=== PATIENT | female | born 1965 | race Caucasian/White ===

== ENCOUNTER 2017-06-16 20:09 | Inpatient (IN) | payer MEDICARE, OTHER ==
[2017-06-16] MEDS ORDERED: Maalox 30 mL Cup PO PRN (21:13)
[2017-06-16] MEDS ORDERED: Magnesium Hydroxide (MOM) 30 mL UDC PO PRN (21:13)
[2017-06-16 21:14] VITALS: BP 107/61
[2017-06-17] MEDS: INSULIN ASPART SLIDING SCALE 100 UNITS/ML UNIT SUBQ SCH ×4 (06:37→20:57)
--- NOTE | 2017-06-17 12:58 | History & Physical ---
ADMIT DATE: 06/16/2017 PATIENT IDENTIFICATION: A 51-year-old female. REQUESTING PHYSICIAN: Dr. Tito Ochoa. REASON: Medical management. HISTORY OF PRESENT ILLNESS: This is a 51-year-old Citizen Of [place] female admitted by Dr. Ochoa from [facility] after the patient was noted to have hallucinations when the patient was saying that the patient believes people are trying to kill her and she was delusional and not taking her medication. PAST MEDICAL HISTORY: Remarkable for: 1. Diabetes. 2. Hypertension. 3. Obesity. 4. DJD. 5. Urinary incontinence. MEDICATIONS AT HOME: Taking aspirin, benazepril, Cogentin, hydrochlorothiazide, metformin, Nicotine patch, Dallas, oxybutynin. ALLERGIES: The patient is not allergic to any medications. SOCIAL HISTORY: She has a history of smoking cigarette. No alcohol or drug use. She resides with her family. FAMILY MEDICAL HISTORY: Remarkable for diabetes and hypertension. REVIEW OF SYSTEMS: The patient currently denies any headache, blurred vision, double vision, dysphagia, odynophagia, runny nose, stuffy nose, fever, chills, cough, chest pain, shortness of breath, palpitations, dizziness, nausea, vomiting, diarrhea, dysuria, hematuria, hematochezia, melena. No history of any seizure or syncopal episode. PHYSICAL EXAMINATION: GENERAL: The patient is alert, awake, lying in the bed without any acute distress. VITAL SIGNS: Temperature 98.7, pulse is 74, respiratory rate 18, blood pressure 130/70. SKIN: Warm to touch. Adequate skin turgor. No petechia, no purpura. HEENT: Normocephalic, atraumatic. Extraocular muscles are intact. Tongue was pink and coated. Poor dentition noted. No oral lesion, no exudate. No sinus tenderness. External auditory canals and tympanic membranes are well visualized. NECK: Supple, no JVD, no hepatojugular reflux. No lymphadenopathy, thyromegaly or carotid bruit. HEART: Both heart sounds are regular. No S3, no S4, no murmur. CHEST: Lung equal in expansion, no wheezing, no crackles. ABDOMEN: Soft. No guarding, no rigidity. Liver and spleen not palpable. No palpable mass. EXTREMITIES: No edema, no cyanosis or clubbing. Peripheral pulses +2. No calf tenderness noted. EXTERNAL GENITALIA AND RECTAL: Not done as per patient request. NEUROLOGIC: Alert, awake, oriented to time, place, person, 2-12 cranial nerves are intact. Power in upper and lower extremities, 5+. Sensation to touch intact. Babinski both toes are going down. No cerebral sign. AVAILABLE DIAGNOSTIC DATA: CBCs are within normal limit. Chest x-ray, no infiltrate, no congestion. Chemistry panels are unremarkable. CLINICAL IMPRESSION: 1. Diabetes mellitus. 2. Hypertension. 3. Obesity. 4. Nicotine dependency. 5. Psychotic disorder. 6. Urinary incontinence. 7. Degenerative joint disease. 8. Health maintenance. PLAN: 1. The patient is admitted at this time to psychiatric unit. Psychiatric care evaluation and management deferred to psychiatrist. 2. Resume the patient is taking medications, which include aspirin, Cogentin, benazepril, hydrochlorothiazide, metformin along with Dallas and Oxybutynin. The patient will have glucose monitoring and use sliding scale insulin. The patient is medically stable to participate in the activities of Geropsych Unit at [facility]. The patient will be seen by us during her stay and as scheduled as well. Care plan has been reviewed and discussed with staff. JOB# [id number]
--- NOTE | 2017-06-18 02:42 | Psychosocial Evaluation ---
DATE OF SERVICE: 06/17/2017 JUSTIFICATION FOR HOSPITALIZATION: On 5150 hold. The patient is psychotic, delusional, not eating, not sleeping, not taking her medications. CHIEF COMPLAINT: Psychotic decompensation. HISTORY OF PRESENT ILLNESS: A 51-year-old female, unclear psych diagnosis brought in by sister, delusional, poor medication compliance, not eating, not sleeping, highly paranoid, delusional, does not know what is going on, believing that people are trying to kill her. On [id number], the patient is poorly oriented. States that her sister put her here because "she is jealous of me," attesting to voices. PAST PSYCHIATRIC HISTORY: Unknown. FAMILY HISTORY: Unknown. SOCIAL HISTORY: The patient states she was born in [place], it is unclear if she is . She states she has 2 kids. Drug history unclear. MEDICAL HISTORY: Please see full H and P. MENTAL STATUS EXAMINATION: Appearance stated age, overweight female, some eye contact, falling asleep. Mood, "okay." Affect angry. Thought processes were disorganized, no overt SI or HI, but she is delusional, poor insight, poor judgment and poor impulse control. PROVISIONAL DIAGNOSES: Psychosis, unspecified; schizophrenia versus schizoaffective disorder versus delusional disorder; poor medication and treatment compliance; mood, unspecified; anxiety, unspecified. MEDICAL: Please see full H and. ESTIMATED LENGTH OF STAY: 5-7 days. ASSESSMENT: The patient requiring inpatient hospitalization for ADLs, not eating, not sleeping, psychotic decompensation, delusional, brought in by family, decompensating at home, poor self-care. PLAN: We will restart medications. TREATMENT PLAN: Includes group as well as milieu therapy. CONDITIONS FOR DISCHARGE: Improved mood, improved insight and control of his psychotic symptoms. JOB# [id number]
[2017-06-18] MEDS: INSULIN ASPART SLIDING SCALE 100 UNITS/ML UNIT SUBQ SCH ×4 (06:46→21:20)
--- NOTE | 2017-06-18 23:49 | Progress Notes ---
DATE: 06/18/2017 SUBJECTIVE: The patient seen, chart reviewed, discussed with staff. The patient remains symptomatic, bizarre, states that she is a commando, that she plans wars, states her main problems is that she "praised too much." Bizarre, rambling nonsensical, apparently she had been decompensating at home, delusional, not eating, poor attention to ADLs. ASSESSMENT: The patient remains disorganized, still psychotic, symptomatic talking about grandiose and bizarre things. As noted, she has been compliant. No side effects so far. PLAN: We will continue to monitor. The patient remains psychotic, symptomatic. Increased Risperdal today. [facility]# [id number]
[2017-06-19] MEDS: INSULIN ASPART SLIDING SCALE 100 UNITS/ML UNIT SUBQ SCH ×4 (06:48→21:01)
--- NOTE | 2017-06-19 19:23 | Progress Notes ---
DATE: 06/19/2017 SUBJECTIVE: The patient seen, chart reviewed, discussed with staff. The patient remains symptomatic, states she is a commando, states she fights wars and they "___are spiritual_," still bizarre, symptomatic, impulsive, unpredictable, paranoid, delusional, still requiring a lot of prompting for ADLs withdrawn, prompting to eat. ASSESSMENT: The patient remains symptomatic, suspicious, paranoid, delusional, making nonsensical and bizarre statements. PLAN: We will continue to monitor, increase Risperdal today. JOB# [id number] INGRID
[2017-06-20] MEDS: INSULIN ASPART SLIDING SCALE 100 UNITS/ML UNIT SUBQ SCH ×4 (06:46→20:33)
--- NOTE | 2017-06-20 19:46 | Progress Notes ---
DATE: 06/20/2017 SUBJECTIVE: The patient was seen, chart reviewed, discussed with staff. The patient remains delusional, intrusive, demanding, paranoid, still talking nonsensical, bizarre, unable to be cared for at a lower level of care, still noted to be symptomatic and psychotic. Sleeping fairly well, eating well, eating with some prompting. ASSESSMENT: The patient remains symptomatic, still bizarre, still with evidence of delusions. PLAN: Continue to monitor. Continue to titrate medications. We will continue to monitor and monitor for any side effects. JOB# [id number] INGRID
[2017-06-21] MEDS: INSULIN ASPART SLIDING SCALE 100 UNITS/ML UNIT SUBQ SCH ×4 (06:32→20:51)
--- NOTE | 2017-06-21 11:37 | Progress Notes ---
DATE: 06/21/2017 SUBJECTIVE: The patient seen, chart reviewed, discussed with staff. The patient still remains symptomatic, talking about spirit wars, and the spirit world, and spirits coming out of her. Still bizarre, making some nonsensical statements; however, staff noting she does seem to be improving, calmer, more redirectable, more engaged, more oriented. She is still isolative, paranoid, and suspicion, taking her medications, no side effects. ASSESSMENT: The patient remains symptomatic, still delusional, still responding to internal stimuli, but improvement noted. PLAN: We will continue to monitor. We will increase Risperdal today. The patient is not safe for discharge at this time. JOB# [id number]
[2017-06-22] MEDS: INSULIN ASPART SLIDING SCALE 100 UNITS/ML UNIT SUBQ SCH ×4 (06:40→20:11)
--- NOTE | 2017-06-22 09:11 | General Progress Note ---
Subjective - Review of Systems Subjective: Patient seen and examined. No new event reported. Available lab and MAR noted. Objective - Results Recent Labs: Laboratory Last Values POC Glucose 106 MG/DL (70 - 105) H 06/22/17 05:47 - Physical Exam Vitals and I&O: Vital Signs Temp 98.0 F 06/22/17 06:10 Pulse 69 06/22/17 06:10 Resp 18 06/22/17 06:10 BP 155/68 06/22/17 06:10 Pulse Ox 69 06/22/17 06:10 Intake & Output 06/21/17 06/22/17 06/22/17 18:59 06:59 18:59 Intake Total 900 120 Balance 900 120 Weight (lbs) 118.206 kg Intake: Oral 900 120 Other: # Voids 4 2 # Bowel Movements 1 0 Active Medications: Current Medications Acetaminophen (Tylenol) 650 mg PO Q6H PRN PRN Reason: Mild Pain/Headache/T above 101 Stop: 08/15/17 21:12 Last Admin: 06/19/17 12:18 Dose: 650 mg Al Hydrox/Mg Hydrox/Simethicone (Maalox) 30 ml PO Q6H PRN PRN Reason: Dyspepsia Stop: 08/15/17 21:12 Insulin Aspart (Novolog Insulin Sliding Scale) 0 units SUBQ ACHS CATHY PRN Reason: Protocol Stop: 08/16/17 07:29 Last Admin: 06/22/17 06:40 Dose: Not Given Lorazepam (Ativan) 1 mg PO Q6H PRN; Protocol PRN Reason: Anxiety/Agitation Stop: 08/15/17 21:12 Last Admin: 06/21/17 08:36 Dose: 1 mg Magnesium Hydroxide (Milk Of Magnesia) 30 ml PO HS PRN PRN Reason: Constipation Stop: 08/15/17 21:12 Risperidone 1 mg/ Risperidone (0.25 mg) 1.25 mg PO BID CATHY Stop: 08/20/17 09:59 Last Admin: 06/21/17 16:23 Dose: 1.25 mg Zolpidem Tartrate (Ambien) 5 mg PO HS PRN PRN Reason: Insomnia Stop: 08/15/17 21:12 General: Alert, Cooperative, No acute distress HEENT: Atraumatic, PERRLA, EOMI, Mucous membr. moist/pink Neck: Supple Cardiovascular: Regular rate, Normal S1, Normal S2 Lungs: Clear to auscultation Abdomen: Bowel sounds, Soft, Other Extremities: Other (no edema cyanosis) Neurological: Normal speech Psych/Mental Status: Mood NL Assessment/Plan - Assessment Assessment: Diabetes mellitus. Hypertension. Obesity. DJD. Urinary incontinence. Psychotic disorder. - Plan Plan: After initial assessment and follow-up test and follow-up evaluation and reviewing the records and labs, patient to continue on current medication for hypertension diabetes obesity DJD and urinary incontinence treatment for now. Psychiatry evaluation and management deferred to psychiatrist. Patient's is medically stable for psychiatric treatment at this time. Nutritional Asmnt/Malnutr-PDOC - Dietary Evaluation Malnutrition Findings (Please click <Entered> for more info): Nutritional Asmnt/Malnutrition Start: 06/21/17 16: 29 Text: Status: Complete Freq: Document 06/21/17 16:29 GSUN (Rec: 06/21/17 16:53 GSUN [email or web address]) Nutritional Asmnt/Malnutrition Patient General Information Nutritional Screening Diagnosis Diagnosis 5150, psychosis unspecified, schizophrenia vs delusional Pertinent Medical Hx/Surgical Hx DM, HTN, obesity, DJD, urinary incontinence, nicotine dependency, psychotic behavior Subjective Information 51 year old female. Pt is able to ambulate, but travels in wheelchair. Pt was pleasant, questionable historian, focused on going to take a shower during visit, not suitable for nutrition education. Attempted to briefly explain [facility] diet, pt walked away. Pt apepared obese . Pt stated UBW 296lb. Obtained CBW 260.6lb with bedscale properly claibrated. Pt stated excellent appetite, no difficulties, no allergies. Current Diet Order/ Nutrition Support Regular Pertinent Medications Novolog, MOM Pertinent Labs POC glucose 99-139 past 3 days . Nutritional Hx/Data Height 1.78 m Height (Calculated Centimeters) 177.8 Current Weight (lbs) 118.206 kg Weight (Calculated Kilograms) 118.2 Weight (Calculated Grams) 968654.2 [place] Body Weight 150 Weight Status Obese GI Symptoms Skin Integrity/Comment: Neto Garsia. Skin intact. Current %PO Good (75-100%) Estimated Nutritional Goals BEE in Kcals: Adj wt of IBW Calories/Kcals/Kg AdjBW 177.7lb/80.8kg Kcals Calculated 2019-2424kcal (25-30kcal/kg) Protein: Adj wt of IBW Protein Calculated 81g (1g/kg) Fluid: ml 2019-2424ml (1ml/kcal) Nutritional Problem 2. Problem Problem Overweight related to Etiology energy imbalance, excessive PO intake aeb Signs/Symptoms: PO intake >100% of estimated nutritional needs since adm, BMI 37 1. Problem Problem Altered nutrition related laboratory values related to Etiology DM aeb Signs/Symptoms: H&P, elevated POC glucose Intervention/Recommendation Comments 1. Recommend [id number]. 2. Monitor weight. BMI 37. CBW 260.6lb with pt off and bedscale properly calibrated. Expected Outcomes/Goals Expected Outcomes/Goals 1. PO intake to meet at least 75% of estimated nutritional needs.
--- NOTE | 2017-06-22 23:11 | Progress Notes ---
DATE: 06/22/2017 SUBJECTIVE: The patient seen, chart reviewed, discussed with staff. The patient remains bizarre, symptomatic, still talking about wars and spiritual battles and asks me about masturbation, tells me she gets headache. She is, however, on a positive note taking her medications, no side effects noted and she is also agreeable to the long-acting injectable. Sleeping fairly well, eating well. She seems to be more cooperative and less aggressive, still needing prompting. ASSESSMENT: The patient remains symptomatic, bizarre, psychotic still delusional and grandiose. PLAN: Continue to monitor. Continue Risperdal at current dose. Continue titration. I will try to get her on Invega or Risperdal Consta. [facility]# [id number]
[2017-06-23] MEDS: INSULIN ASPART SLIDING SCALE 100 UNITS/ML UNIT SUBQ SCH ×4 (06:43→20:54)
--- NOTE | 2017-06-23 21:00 | Progress Notes ---
DATE: 06/23/2017 SUBJECTIVE: The patient was seen, chart reviewed, and discussed with staff. The patient remains symptomatic, still delusional, still with psychosis, seems to be calmer, more predictable in terms of her behaviors. More interactive on exam, noting that any perceptual disturbance __are improving-___ less fixated on "being responsible" for wars and spiritual wars. Socializing better, sleeping well, eating fairly well, taking her medications, no side effects. ASSESSMENT: The patient seems to be improving, still with some residual psychotic symptoms. We will continue to monitor given the severity of her presentation and current ongoing psychotic symptoms. She is not safe for discharge. JOB# [id number] INGRID
--- NOTE | 2017-06-23 22:08 | Internal Medicine Prog Note ---
Internal Medicine Subjective - Subjective Service Date: 06/23/17 Patient seen and examined:: without staff Patient is:: awake, in bed, talking Per staff patient has:: no adverse event Internal Medicine Objective - Results Recent Labs: Laboratory Last Values POC Glucose 98 MG/DL (70 - 105) 06/23/17 20:16 - Physical Exam Vitals and I&O: Vital Signs Temp 98.2 F 06/23/17 21:20 Pulse 54 06/23/17 21:20 Resp 18 06/23/17 21:20 BP 99/53 06/23/17 21:20 Pulse Ox 96 06/23/17 21:20 Intake & Output 06/23/17 06/23/17 06/24/17 06:59 18:59 06:59 Intake Total 890 Balance 890 Intake: Oral 890 Other: # Voids 3 # Bowel Movements 2 Active Medications: Current Medications Acetaminophen (Tylenol) 650 mg PO Q6H PRN PRN Reason: Mild Pain/Headache/T above 101 Stop: 08/15/17 21:12 Last Admin: 06/22/17 20:57 Dose: 650 mg Al Hydrox/Mg Hydrox/Simethicone (Maalox) 30 ml PO Q6H PRN PRN Reason: Dyspepsia Stop: 08/15/17 21:12 Insulin Aspart (Novolog Insulin Sliding Scale) 0 units SUBQ ACHS CATHY PRN Reason: Protocol Stop: 08/16/17 07:29 Last Admin: 06/23/17 20:54 Dose: Not Given Lorazepam (Ativan) 1 mg PO Q6H PRN; Protocol PRN Reason: Anxiety/Agitation Stop: 08/15/17 21:12 Last Admin: 06/21/17 08:36 Dose: 1 mg Magnesium Hydroxide (Milk Of Magnesia) 30 ml PO HS PRN PRN Reason: Constipation Stop: 08/15/17 21:12 Risperidone 1 mg/ Risperidone (0.25 mg) 1.25 mg PO BID CATHY Stop: 08/20/17 09:59 Last Admin: 06/23/17 18:26 Dose: 1.25 mg Zolpidem Tartrate (Ambien) 5 mg PO HS PRN PRN Reason: Insomnia Stop: 08/15/17 21:12 General: weak, alert, demented HEENT: NC/AT, PERRLA, EOMI, anicteric sclerae Neck: Supple, No JVD, No thyromegaly, +2 carotid pulse wo bruit, No LAD Lungs: CTAB, congested, wheezing Cardiovascular: RRR, Normal S1, Normal S2 Abdomen: soft, non-tender, non-distended Extremities: clear Neurological: no change Internal Medicine Assmt/Plan - Assessment Assessment: 1.DM. 2.HTN 3.DJD. 4.PSYCHOSIS - Plan Plan: CONTINUE ON CURRENT MEDICATION AND DIET. Nutritional Asmnt/Malnutr-PDOC - Dietary Evaluation Malnutrition Findings (Please click <Entered> for more info): Nutritional Asmnt/Malnutrition Start: 06/21/17 16: 29 Text: Status: Complete Freq: Document 06/21/17 16:29 GSUN (Rec: 06/21/17 16:53 GSUN [email or web address]) Nutritional Asmnt/Malnutrition Patient General Information Nutritional Screening Diagnosis Diagnosis 5150, psychosis unspecified, schizophrenia vs delusional Pertinent Medical Hx/Surgical Hx DM, HTN, obesity, DJD, urinary incontinence, nicotine dependency, psychotic behavior Subjective Information 51 year old female. Pt is able to ambulate, but travels in wheelchair. Pt was pleasant, questionable historian, focused on going to take a shower during visit, not suitable for nutrition education. Attempted to briefly explain [facility] diet, pt walked away. Pt apepared obese . Pt stated UBW 296lb. Obtained CBW 260.6lb with bedscale properly claibrated. Pt stated excellent appetite, no difficulties, no allergies. Current Diet Order/ Nutrition Support Regular Pertinent Medications Novolog, MOM Pertinent Labs POC glucose 99-139 past 3 days . Nutritional Hx/Data Height 1.78 m Height (Calculated Centimeters) 177.8 Current Weight (lbs) 118.206 kg Weight (Calculated Kilograms) 118.2 Weight (Calculated Grams) 078196.2 [place] Body Weight 150 Weight Status Obese GI Symptoms Skin Integrity/Comment: Neto 22. Skin intact. Current %PO Good (75-100%) Estimated Nutritional Goals BEE in Kcals: Adj wt of IBW Calories/Kcals/Kg AdjBW 177.7lb/80.8kg Kcals Calculated 2020-2424kcal (25-30kcal/kg) Protein: Adj wt of IBW Protein Calculated 81g (1g/kg) Fluid: ml 2020-2424ml (1ml/kcal) Nutritional Problem 2. Problem Problem Overweight related to Etiology energy imbalance, excessive PO intake aeb Signs/Symptoms: PO intake >100% of estimated nutritional needs since adm, BMI 37 1. Problem Problem Altered nutrition related laboratory values related to Etiology DM aeb Signs/Symptoms: H&P, elevated POC glucose Intervention/Recommendation Comments 1. Recommend [id number]. 2. Monitor weight. BMI 37. CBW 260.6lb with pt off and bedscale properly calibrated. Expected Outcomes/Goals Expected Outcomes/Goals 1. PO intake to meet at least 75% of estimated nutritional needs.
[2017-06-24] MEDS: INSULIN ASPART SLIDING SCALE 100 UNITS/ML UNIT SUBQ SCH ×4 (06:38→20:43)
--- NOTE | 2017-06-24 17:44 | Internal Medicine Prog Note ---
Internal Medicine Subjective - Subjective Service Date: 06/24/17 Patient seen and examined:: without staff Patient is:: awake, in bed, talking Per staff patient has:: no adverse event Internal Medicine Objective - Results Recent Labs: Laboratory Last Values POC Glucose 158 MG/DL (70 - 105) H 06/24/17 16:41 - Physical Exam Vitals and I&O: Vital Signs Temp 98.2 F 06/23/17 21:20 Pulse 54 06/23/17 21:20 Resp 18 06/23/17 21:20 BP 99/53 06/23/17 21:20 Pulse Ox 96 06/23/17 21:20 Intake & Output 06/23/17 06/24/17 06/24/17 18:59 06:59 18:59 Other: # Voids 2 Active Medications: Current Medications Acetaminophen (Tylenol) 650 mg PO Q6H PRN PRN Reason: Mild Pain/Headache/T above 101 Stop: 08/15/17 21:12 Last Admin: 06/22/17 20:57 Dose: 650 mg Al Hydrox/Mg Hydrox/Simethicone (Maalox) 30 ml PO Q6H PRN PRN Reason: Dyspepsia Stop: 08/15/17 21:12 Insulin Aspart (Novolog Insulin Sliding Scale) 0 units SUBQ ACHS CATHY PRN Reason: Protocol Stop: 08/16/17 07:29 Last Admin: 06/24/17 16:45 Dose: 2 units Lorazepam (Ativan) 1 mg PO Q6H PRN; Protocol PRN Reason: Anxiety/Agitation Stop: 08/15/17 21:12 Last Admin: 06/21/17 08:36 Dose: 1 mg Magnesium Hydroxide (Milk Of Magnesia) 30 ml PO HS PRN PRN Reason: Constipation Stop: 08/15/17 21:12 Risperidone 1 mg/ Risperidone (0.25 mg) 1.25 mg PO BID CATHY Stop: 08/20/17 09:59 Last Admin: 06/24/17 08:57 Dose: 1.25 mg Zolpidem Tartrate (Ambien) 5 mg PO HS PRN PRN Reason: Insomnia Stop: 08/15/17 21:12 General: weak, alert, demented HEENT: NC/AT, PERRLA, EOMI, anicteric sclerae Neck: Supple, No JVD, No thyromegaly, +2 carotid pulse wo bruit, No LAD Lungs: CTAB, congested, wheezing Cardiovascular: RRR, Normal S1, Normal S2 Abdomen: soft, non-tender, non-distended Extremities: clear Neurological: no change Internal Medicine Assmt/Plan - Assessment Assessment: 1.DM. 2.HTN 3.DJD. 4.PSYCHOSIS - Plan Plan: CONTINUE ON CURRENT MEDICATION AND DIET. Nutritional Asmnt/Malnutr-PDOC - Dietary Evaluation Malnutrition Findings (Please click <Entered> for more info): Nutritional Asmnt/Malnutrition Start: 06/21/17 16: 29 Text: Status: Complete Freq: Document 06/21/17 16:29 GSUN (Rec: 06/21/17 16:53 GSUN [email or web address]) Nutritional Asmnt/Malnutrition Patient General Information Nutritional Screening Diagnosis Diagnosis 5150, psychosis unspecified, schizophrenia vs delusional Pertinent Medical Hx/Surgical Hx DM, HTN, obesity, DJD, urinary incontinence, nicotine dependency, psychotic behavior Subjective Information 51 year old female. Pt is able to ambulate, but travels in wheelchair. Pt was pleasant, questionable historian, focused on going to take a shower during visit, not suitable for nutrition education. Attempted to briefly explain [facility] diet, pt walked away. Pt apepared obese . Pt stated UBW 296lb. Obtained CBW 260.6lb with bedscale properly claibrated. Pt stated excellent appetite, no difficulties, no allergies. Current Diet Order/ Nutrition Support Regular Pertinent Medications Novolog, MOM Pertinent Labs POC glucose 99-139 past 3 days . Nutritional Hx/Data Height 1.78 m Height (Calculated Centimeters) 177.8 Current Weight (lbs) 118.206 kg Weight (Calculated Kilograms) 118.2 Weight (Calculated Grams) 608953.2 [place] Body Weight 150 Weight Status Obese GI Symptoms Skin Integrity/Comment: Neto 22. Skin intact. Current %PO Good (75-100%) Estimated Nutritional Goals BEE in Kcals: Adj wt of IBW Calories/Kcals/Kg AdjBW 177.7lb/80.8kg Kcals Calculated 2020-2424kcal (25-30kcal/kg) Protein: Adj wt of IBW Protein Calculated 81g (1g/kg) Fluid: ml 2019-2424ml (1ml/kcal) Nutritional Problem 2. Problem Problem Overweight related to Etiology energy imbalance, excessive PO intake aeb Signs/Symptoms: PO intake >100% of estimated nutritional needs since adm, BMI 37 1. Problem Problem Altered nutrition related laboratory values related to Etiology DM aeb Signs/Symptoms: H&P, elevated POC glucose Intervention/Recommendation Comments 1. Recommend [id number]. 2. Monitor weight. BMI 37. CBW 260.6lb with pt off and bedscale properly calibrated. Expected Outcomes/Goals Expected Outcomes/Goals 1. PO intake to meet at least 75% of estimated nutritional needs.
--- NOTE | 2017-06-24 21:44 | Progress Notes ---
DATE: 06/24/2017 SUBJECTIVE: The patient seen, chart reviewed, discussed with staff. The patient is currently symptomatic, but improving. Psychotic symptoms dissipating, no longer talking about wars, spiritual wars, and battles. The patient seems to be getting along fairly well also with staff and peers, and staff is noting a robust response to treatment. She is very happy with her progress. Sleeping well, eating well. No agitation, no aggressive behavior, is more linear and engaged on exam, answering questions appropriately. ASSESSMENT AND PLAN: The patient remains symptomatic still, somewhat withdrawn, but improvement noted. PLAN: Continue to monitor for another 24 hours. Coordinate care with social service liaison regarding safe discharge planning, and good psychiatric followup. [facility]# [id number]
[2017-06-25] MEDS: INSULIN ASPART SLIDING SCALE 100 UNITS/ML UNIT SUBQ SCH ×4 (06:34→20:40)
--- NOTE | 2017-06-25 18:55 | Internal Medicine Prog Note ---
Internal Medicine Subjective - Subjective Service Date: 06/25/17 Patient seen and examined:: with staff Patient is:: awake, in bed, talking Per staff patient has:: no adverse event Internal Medicine Objective - Results Recent Labs: Laboratory Last Values POC Glucose 112 MG/DL (70 - 105) H 06/25/17 16:45 - Physical Exam Vitals and I&O: Vital Signs Temp 97.8 F 06/25/17 07:07 Pulse 68 06/25/17 07:07 Resp 18 06/25/17 07:07 BP 120/73 06/25/17 07:07 Pulse Ox 97 06/25/17 07:07 Intake & Output 06/24/17 06/25/17 06/25/17 18:59 06:59 18:59 Other: # Voids 2 2 Active Medications: Current Medications Acetaminophen (Tylenol) 650 mg PO Q6H PRN PRN Reason: Mild Pain/Headache/T above 101 Stop: 08/15/17 21:12 Last Admin: 06/22/17 20:57 Dose: 650 mg Al Hydrox/Mg Hydrox/Simethicone (Maalox) 30 ml PO Q6H PRN PRN Reason: Dyspepsia Stop: 08/15/17 21:12 Insulin Aspart (Novolog Insulin Sliding Scale) 0 units SUBQ ACHS CATHY PRN Reason: Protocol Stop: 08/16/17 07:29 Last Admin: 06/25/17 16:55 Dose: Not Given Lorazepam (Ativan) 1 mg PO Q6H PRN; Protocol PRN Reason: Anxiety/Agitation Stop: 08/15/17 21:12 Last Admin: 06/21/17 08:36 Dose: 1 mg Magnesium Hydroxide (Milk Of Magnesia) 30 ml PO HS PRN PRN Reason: Constipation Stop: 08/15/17 21:12 Risperidone 1 mg/ Risperidone (0.25 mg) 1.25 mg PO BID CATHY Stop: 08/20/17 09:59 Last Admin: 06/25/17 16:58 Dose: 1.25 mg Zolpidem Tartrate (Ambien) 5 mg PO HS PRN PRN Reason: Insomnia Stop: 08/15/17 21:12 General: weak, alert, demented HEENT: NC/AT, PERRLA, EOMI, anicteric sclerae Neck: Supple, No JVD, No thyromegaly, +2 carotid pulse wo bruit, No LAD Lungs: CTAB, congested, wheezing Cardiovascular: RRR, Normal S1, Normal S2 Abdomen: soft, non-tender, non-distended Extremities: clear Neurological: no change Internal Medicine Assmt/Plan - Assessment Assessment: 1.DM. 2.HTN 3.DJD. 4.PSYCHOSIS - Plan Plan: CONTINUE ON CURRENT MEDICATION AND DIET. Nutritional Asmnt/Malnutr-PDOC - Dietary Evaluation Malnutrition Findings (Please click <Entered> for more info): Nutritional Asmnt/Malnutrition Start: 06/21/17 16: 29 Text: Status: Complete Freq: Document 06/21/17 16:29 GSUN (Rec: 06/21/17 16:53 GSUN [email or web address]) Nutritional Asmnt/Malnutrition Patient General Information Nutritional Screening Diagnosis Diagnosis 5150, psychosis unspecified, schizophrenia vs delusional Pertinent Medical Hx/Surgical Hx DM, HTN, obesity, DJD, urinary incontinence, nicotine dependency, psychotic behavior Subjective Information 51 year old female. Pt is able to ambulate, but travels in wheelchair. Pt was pleasant, questionable historian, focused on going to take a shower during visit, not suitable for nutrition education. Attempted to briefly explain [facility] diet, pt walked away. Pt apepared obese . Pt stated UBW 296lb. Obtained CBW 260.6lb with bedscale properly claibrated. Pt stated excellent appetite, no difficulties, no allergies. Current Diet Order/ Nutrition Support Regular Pertinent Medications Novolog, MOM Pertinent Labs POC glucose 99-139 past 3 days . Nutritional Hx/Data Height 1.78 m Height (Calculated Centimeters) 177.8 Current Weight (lbs) 118.206 kg Weight (Calculated Kilograms) 118.2 Weight (Calculated Grams) 954394.2 [place] Body Weight 150 Weight Status Obese GI Symptoms Skin Integrity/Comment: Neto 22. Skin intact. Current %PO Good (75-100%) Estimated Nutritional Goals BEE in Kcals: Adj wt of IBW Calories/Kcals/Kg AdjBW 177.7lb/80.8kg Kcals Calculated 2020-2424kcal (25-30kcal/kg) Protein: Adj wt of IBW Protein Calculated 81g (1g/kg) Fluid: ml 2019-2424ml (1ml/kcal) Nutritional Problem 2. Problem Problem Overweight related to Etiology energy imbalance, excessive PO intake aeb Signs/Symptoms: PO intake >100% of estimated nutritional needs since adm, BMI 37 1. Problem Problem Altered nutrition related laboratory values related to Etiology DM aeb Signs/Symptoms: H&P, elevated POC glucose Intervention/Recommendation Comments 1. Recommend [id number]. 2. Monitor weight. BMI 37. CBW 260.6lb with pt off and bedscale properly calibrated. Expected Outcomes/Goals Expected Outcomes/Goals 1. PO intake to meet at least 75% of estimated nutritional needs.
--- NOTE | 2017-06-25 21:43 | Progress Notes ---
DATE: 06/25/2017 SUBJECTIVE: The patient seen, chart reviewed, discussed with staff. The patient seems to be improving, psychosis dissipating, more engaged, oriented. Tolerant to medications. I did have some concerns about grave disability. The patient is living in a motor home on her family's property. Apparently she does live alone. There seems to be some care taking going on and family is involved, but the Adult Protective Services is involved. There are concerns about the patient's living environment and her ability to for example administer her medications and take care of her basic needs. She is fairly impoverished in regards to self-care, but has been more redirectable, certainly sleeping well, eating well, seems to be getting along well with staff and peers. ASSESSMENT: Good medication compliance, improvement noted, still with some residual paranoia, psychosis, and bizarre statements, but more redirectable, no agitation. PLAN: Concerns for grave disability, we will coordinate care with social work. The patient is not safe for a lower level of care at this time. JOB# [id number]
[2017-06-26] MEDS: INSULIN ASPART SLIDING SCALE 100 UNITS/ML UNIT SUBQ SCH ×4 (06:38→21:36)
--- NOTE | 2017-06-26 10:45 | Progress Notes ---
DATE: 06/26/2017 SUBJECTIVE: The patient seen, chart reviewed, discussed with staff. The patient remains symptomatic, concerns for grave disability, delusions and paranoia present, still having some bizarre thoughts, odd thoughts, however, she has been redirectable, sleeping well, eating well, tolerant of medications. ASSESSMENT: The patient remains symptomatic, still somewhat bizarre, paranoid, delusional, odd thoughts, concerns for her ability to function at a lower level of care. We will continue to monitor. We will continue to adjust and titrate medications. We will also work on a safe discharge plan. [facility]# [id number]
[2017-06-27] MEDS: INSULIN ASPART SLIDING SCALE 100 UNITS/ML UNIT SUBQ SCH ×4 (06:57→20:59)
--- NOTE | 2017-06-27 18:08 | General Progress Note ---
Subjective - Review of Systems Service Date: 06/27/17 Subjective: sittign comfortably in wheelchair no complaint Objective - Results Recent Labs: Laboratory Last Values POC Glucose 125 MG/DL (70 - 105) H 06/27/17 16:37 - Physical Exam Vitals and I&O: Vital Signs Temp 98 F 06/26/17 20:48 Pulse 73 06/26/17 20:48 Resp 20 06/26/17 20:48 BP 120/45 06/26/17 20:48 Pulse Ox 97 06/26/17 20:48 Intake & Output 06/26/17 06/27/17 06/27/17 18:59 06:59 18:59 Intake Total 800 120 Balance 800 120 Intake: Oral 800 120 Other: # Voids 4 1 # Bowel Movements 2 Active Medications: Current Medications Acetaminophen (Tylenol) 650 mg PO Q6H PRN PRN Reason: Mild Pain/Headache/T above 101 Stop: 08/15/17 21:12 Last Admin: 06/26/17 21:39 Dose: 650 mg Al Hydrox/Mg Hydrox/Simethicone (Maalox) 30 ml PO Q6H PRN PRN Reason: Dyspepsia Stop: 08/15/17 21:12 Insulin Aspart (Novolog Insulin Sliding Scale) 0 units SUBQ ACHS CATHY PRN Reason: Protocol Stop: 08/16/17 07:29 Last Admin: 06/27/17 17:02 Dose: Not Given Lorazepam (Ativan) 1 mg PO Q6H PRN; Protocol PRN Reason: Anxiety/Agitation Stop: 08/15/17 21:12 Last Admin: 06/21/17 08:36 Dose: 1 mg Magnesium Hydroxide (Milk Of Magnesia) 30 ml PO HS PRN PRN Reason: Constipation Stop: 08/15/17 21:12 Risperidone (Risperdal) 1.5 mg PO BID CATHY Stop: 08/26/17 07:21 Last Admin: 06/27/17 17:09 Dose: 1.5 mg Zolpidem Tartrate (Ambien) 5 mg PO HS PRN PRN Reason: Insomnia Stop: 08/15/17 21:12 General: Alert, Cooperative, No acute distress HEENT: Atraumatic, PERRLA, EOMI, Mucous membr. moist/pink Neck: Supple Cardiovascular: Regular rate, Normal S1, Normal S2 Lungs: Clear to auscultation Abdomen: Bowel sounds, Soft, Other Extremities: Other (no edema cyanosis) Neurological: Normal speech Psych/Mental Status: Mood NL Assessment/Plan - Assessment Assessment: 1.DM. 2.HTN 3.DJD. 4.PSYCHOSIS - Plan Plan: cont current treatment Nutritional Asmnt/Malnutr-PDOC - Dietary Evaluation Malnutrition Findings (Please click <Entered> for more info): Nutritional Asmnt/Malnutrition Start: 06/21/17 16: 29 Text: Status: Complete Freq: Document 06/21/17 16:29 GSUN (Rec: 06/21/17 16:53 GSUN [email or web address]) Nutritional Asmnt/Malnutrition Patient General Information Nutritional Screening Diagnosis Diagnosis 5150, psychosis unspecified, schizophrenia vs delusional Pertinent Medical Hx/Surgical Hx DM, HTN, obesity, DJD, urinary incontinence, nicotine dependency, psychotic behavior Subjective Information 51 year old female. Pt is able to ambulate, but travels in wheelchair. Pt was pleasant, questionable historian, focused on going to take a shower during visit, not suitable for nutrition education. Attempted to briefly explain [facility] diet, pt walked away. Pt apepared obese . Pt stated UBW 296lb. Obtained CBW 260.6lb with bedscale properly claibrated. Pt stated excellent appetite, no difficulties, no allergies. Current Diet Order/ Nutrition Support Regular Pertinent Medications Novolog, MOM Pertinent Labs POC glucose 99-139 past 3 days . Nutritional Hx/Data Height 1.78 m Height (Calculated Centimeters) 177.8 Current Weight (lbs) 118.206 kg Weight (Calculated Kilograms) 118.2 Weight (Calculated Grams) 491076.2 [place] Body Weight 150 Weight Status Obese GI Symptoms Skin Integrity/Comment: Neto Garsia. Skin intact. Current %PO Good (75-100%) Estimated Nutritional Goals BEE in Kcals: Adj wt of IBW Calories/Kcals/Kg AdjBW 177.7lb/80.8kg Kcals Calculated 2020-2424kcal (25-30kcal/kg) Protein: Adj wt of IBW Protein Calculated 81g (1g/kg) Fluid: ml 2020-2424ml (1ml/kcal) Nutritional Problem 2. Problem Problem Overweight related to Etiology energy imbalance, excessive PO intake aeb Signs/Symptoms: PO intake >100% of estimated nutritional needs since adm, BMI 37 1. Problem Problem Altered nutrition related laboratory values related to Etiology DM aeb Signs/Symptoms: H&P, elevated POC glucose Intervention/Recommendation Comments 1. Recommend [id number]. 2. Monitor weight. BMI 37. CBW 260.6lb with pt off and bedscale properly calibrated. Expected Outcomes/Goals Expected Outcomes/Goals 1. PO intake to meet at least 75% of estimated nutritional needs.
--- NOTE | 2017-06-27 20:08 | Progress Notes ---
DATE: 06/27/2017 SUBJECTIVE: The patient was seen, chart reviewed, discussed with staff. The patient remains selectively mute, isolative and withdrawn, still talking about wars and battles and some nonsensical ideations and ideas, but she is more redirectable, seems to be tolerant of her current medication regimen, sleeping fairly well, eating well. No combative behaviors noted. She may be approaching her baseline. We are concerned about her placement. We are investigating better discharge plan and also we are in touch with Adult Protective Services. The patient is sleeping fairly well, eating with some prompting. ASSESSMENT: The patient remains symptomatic, still with evidence of psychosis, bizarre ideations and thoughts and grave disability. PLAN: Increase Risperdal today, monitor closely, coordinate care with social professionals regarding safe discharge plan and good psychiatric followup. JOB# [id number]
[2017-06-28] MEDS: INSULIN ASPART SLIDING SCALE 100 UNITS/ML UNIT SUBQ SCH ×4 (06:53→21:18)
--- NOTE | 2017-06-28 10:16 | General Progress Note ---
Subjective - Review of Systems Subjective: Patient seen and examined. No new event reported. Available lab and MAR noted. Patient denies any chest pain, shortness of breath, palpitation, dizziness, headache, nausea, vomiting. Objective - Results Recent Labs: Laboratory Last Values POC Glucose 112 MG/DL (70 - 105) H 06/28/17 06:52 - Physical Exam Vitals and I&O: Vital Signs Temp 97.6 F 06/28/17 06:30 Pulse 61 06/28/17 06:30 Resp 19 06/28/17 06:30 BP 127/44 06/28/17 06:30 Pulse Ox 92 06/28/17 06:30 Intake & Output 06/27/17 06/28/17 06/28/17 18:59 06:59 18:59 Intake Total 900 480 Balance 900 480 Intake: Oral 900 480 Other: # Voids 4 3 # Bowel Movements 2 0 Active Medications: Current Medications Acetaminophen (Tylenol) 650 mg PO Q6H PRN PRN Reason: Mild Pain/Headache/T above 101 Stop: 08/15/17 21:12 Last Admin: 06/26/17 21:39 Dose: 650 mg Al Hydrox/Mg Hydrox/Simethicone (Maalox) 30 ml PO Q6H PRN PRN Reason: Dyspepsia Stop: 08/15/17 21:12 Insulin Aspart (Novolog Insulin Sliding Scale) 0 units SUBQ ACHS CATHY PRN Reason: Protocol Stop: 08/16/17 07:29 Last Admin: 06/28/17 06:53 Dose: Not Given Lorazepam (Ativan) 1 mg PO Q6H PRN; Protocol PRN Reason: Anxiety/Agitation Stop: 08/15/17 21:12 Last Admin: 06/21/17 08:36 Dose: 1 mg Magnesium Hydroxide (Milk Of Magnesia) 30 ml PO HS PRN PRN Reason: Constipation Stop: 08/15/17 21:12 Risperidone (Risperdal) 1.5 mg PO BID CATHY Stop: 08/26/17 07:21 Last Admin: 06/28/17 09:12 Dose: 1.5 mg Zolpidem Tartrate (Ambien) 5 mg PO HS PRN PRN Reason: Insomnia Stop: 08/15/17 21:12 General: Alert, Cooperative, No acute distress HEENT: Atraumatic, PERRLA, EOMI, Mucous membr. moist/pink Neck: Supple Cardiovascular: Regular rate, Normal S1, Normal S2 Lungs: Clear to auscultation Abdomen: Bowel sounds, Soft, Other Extremities: Other (no edema cyanosis) Neurological: Normal speech Psych/Mental Status: Mood NL Assessment/Plan - Assessment Assessment: Diabetes mellitus. Hypertension. Obesity. DJD. Smoking cigarettes. Urinary incontinence. Psychotic disorder. - Plan Plan: After assessment and evaluation and reviewing the records and labs, patient to continue on current medication for hypertension diabetes obesity DJD and urinary incontinence treatment for now. Psychiatry evaluation and management deferred to psychiatrist. Patient's is medically stable for psychiatric treatment at this time. Smoking status and counseling is discussed. Nutritional Asmnt/Malnutr-PDOC - Dietary Evaluation Malnutrition Findings (Please click <Entered> for more info): Nutritional Asmnt/Malnutrition Start: 06/21/17 16: 29 Text: Status: Complete Freq: Document 06/21/17 16:29 GSUN (Rec: 06/21/17 16:53 GSUN [email or web address]) Nutritional Asmnt/Malnutrition Patient General Information Nutritional Screening Diagnosis Diagnosis 5150, psychosis unspecified, schizophrenia vs delusional Pertinent Medical Hx/Surgical Hx DM, HTN, obesity, DJD, urinary incontinence, nicotine dependency, psychotic behavior Subjective Information 51 year old female. Pt is able to ambulate, but travels in wheelchair. Pt was pleasant, questionable historian, focused on going to take a shower during visit, not suitable for nutrition education. Attempted to briefly explain [facility] diet, pt walked away. Pt apepared obese . Pt stated UBW 296lb. Obtained CBW 260.6lb with bedscale properly claibrated. Pt stated excellent appetite, no difficulties, no allergies. Current Diet Order/ Nutrition Support Regular Pertinent Medications Novolog, MOM Pertinent Labs POC glucose 99-139 past 3 days . Nutritional Hx/Data Height 1.78 m Height (Calculated Centimeters) 177.8 Current Weight (lbs) 118.206 kg Weight (Calculated Kilograms) 118.2 Weight (Calculated Grams) 419649.2 [place] Body Weight 150 Weight Status Obese GI Symptoms Skin Integrity/Comment: Neto 22. Skin intact. Current %PO Good (75-100%) Estimated Nutritional Goals BEE in Kcals: Adj wt of IBW Calories/Kcals/Kg AdjBW 177.7lb/80.8kg Kcals Calculated 2019-2424kcal (25-30kcal/kg) Protein: Adj wt of IBW Protein Calculated 81g (1g/kg) Fluid: ml 2019-2424ml (1ml/kcal) Nutritional Problem 2. Problem Problem Overweight related to Etiology energy imbalance, excessive PO intake aeb Signs/Symptoms: PO intake >100% of estimated nutritional needs since adm, BMI 37 1. Problem Problem Altered nutrition related laboratory values related to Etiology DM aeb Signs/Symptoms: H&P, elevated POC glucose Intervention/Recommendation Comments 1. Recommend [id number]. 2. Monitor weight. BMI 37. CBW 260.6lb with pt off and bedscale properly calibrated. Expected Outcomes/Goals Expected Outcomes/Goals 1. PO intake to meet at least 75% of estimated nutritional needs.
--- NOTE | 2017-06-29 00:05 | Progress Notes ---
DATE: 06/28/2017 COVERING FOR: Dr. Ochoa. SUBJECTIVE: Case was discussed with staff of the patient, reviewed records. This is a 51-year-old female who was admitted on the 06/16/2017, because of psychosis, agitation, brought by his sister, delusional, poor medication compliance, not eating, not sleeping, highly paranoid, delusional, and does not know what is going on, believing that people were trying to kill her. The patient is fully oriented. The patient said that she is here because her sister is jealous of her, hearing voices. She has been compliant with the medication with no side effects. When I talked to her, she was redirectable. She was able to carry on a conversation. She is on Risperdal 1.5 mg twice that was increased yesterday with no side effects, no sedation, no nausea, no extrapyramidal symptoms. I will continue to work with the patient in group therapy, milieu therapy, and adjust the medication as needed. JOB# [id number]
[2017-06-29] MEDS: INSULIN ASPART SLIDING SCALE 100 UNITS/ML UNIT SUBQ SCH ×4 (06:34→21:34)
--- NOTE | 2017-06-29 08:56 | General Progress Note ---
Subjective - Review of Systems Subjective: Patient seen and examined. No new event reported. Available lab and MAR noted. Patient denies any chest pain, shortness of breath, palpitation, dizziness, headache, nausea, vomiting. Objective - Results Recent Labs: Laboratory Last Values POC Glucose 104 MG/DL (70 - 105) 06/29/17 05:57 - Physical Exam Vitals and I&O: Vital Signs Temp 97.4 F 06/29/17 07:01 Pulse 65 06/29/17 07:01 Resp 19 06/29/17 07:01 BP 104/69 06/29/17 07:01 Pulse Ox 97 06/29/17 07:01 Intake & Output 06/28/17 06/29/17 06/29/17 18:59 06:59 18:59 Intake Total 480 240 Balance 480 240 Intake: Oral 480 240 Other: # Voids 2 1 Active Medications: Current Medications Acetaminophen (Tylenol) 650 mg PO Q6H PRN PRN Reason: Mild Pain/Headache/T above 101 Stop: 08/15/17 21:12 Last Admin: 06/26/17 21:39 Dose: 650 mg Al Hydrox/Mg Hydrox/Simethicone (Maalox) 30 ml PO Q6H PRN PRN Reason: Dyspepsia Stop: 08/15/17 21:12 Insulin Aspart (Novolog Insulin Sliding Scale) 0 units SUBQ ACHS CATHY PRN Reason: Protocol Stop: 08/16/17 07:29 Last Admin: 06/29/17 06:34 Dose: Not Given Lorazepam (Ativan) 1 mg PO Q6H PRN; Protocol PRN Reason: Anxiety/Agitation Stop: 08/15/17 21:12 Last Admin: 06/21/17 08:36 Dose: 1 mg Magnesium Hydroxide (Milk Of Magnesia) 30 ml PO HS PRN PRN Reason: Constipation Stop: 08/15/17 21:12 Risperidone (Risperdal) 1.5 mg PO BID CATHY Stop: 08/26/17 07:21 Last Admin: 06/29/17 08:30 Dose: 1.5 mg Zolpidem Tartrate (Ambien) 5 mg PO HS PRN PRN Reason: Insomnia Stop: 08/15/17 21:12 General: Alert, Cooperative, No acute distress HEENT: Atraumatic, PERRLA, EOMI, Mucous membr. moist/pink Neck: Supple Cardiovascular: Regular rate, Normal S1, Normal S2 Lungs: Clear to auscultation Abdomen: Bowel sounds, Soft, Other Extremities: Other (no edema cyanosis) Neurological: Normal speech Psych/Mental Status: Mood NL Assessment/Plan - Assessment Assessment: Diabetes mellitus. Hypertension. Obesity. DJD. Smoking cigarettes. Urinary incontinence. Psychiatric disorder. - Plan Plan: After assessment and evaluation and reviewing the records and labs, patient to continue on current medication for hypertension diabetes obesity DJD and urinary incontinence treatment for now. Psychiatry evaluation and management deferred to psychiatrist. Patient's is medically stable for psychiatric treatment at this time. Smoking status and counseling is discussed. Nutritional Asmnt/Malnutr-PDOC - Dietary Evaluation Malnutrition Findings (Please click <Entered> for more info): Nutritional Asmnt/Malnutrition Start: 06/21/17 16: 29 Text: Status: Complete Freq: Document 06/21/17 16:29 GSUN (Rec: 06/21/17 16:53 GSUN [email or web address]) Nutritional Asmnt/Malnutrition Patient General Information Nutritional Screening Diagnosis Diagnosis 5150, psychosis unspecified, schizophrenia vs delusional Pertinent Medical Hx/Surgical Hx DM, HTN, obesity, DJD, urinary incontinence, nicotine dependency, psychotic behavior Subjective Information 51 year old female. Pt is able to ambulate, but travels in wheelchair. Pt was pleasant, questionable historian, focused on going to take a shower during visit, not suitable for nutrition education. Attempted to briefly explain [facility] diet, pt walked away. Pt apepared obese . Pt stated UBW 296lb. Obtained CBW 260.6lb with bedscale properly claibrated. Pt stated excellent appetite, no difficulties, no allergies. Current Diet Order/ Nutrition Support Regular Pertinent Medications Novolog, MOM Pertinent Labs POC glucose 99-139 past 3 days . Nutritional Hx/Data Height 1.78 m Height (Calculated Centimeters) 177.8 Current Weight (lbs) 118.206 kg Weight (Calculated Kilograms) 118.2 Weight (Calculated Grams) 515536.2 [place] Body Weight 150 Weight Status Obese GI Symptoms Skin Integrity/Comment: Neto 22. Skin intact. Current %PO Good (75-100%) Estimated Nutritional Goals BEE in Kcals: Adj wt of IBW Calories/Kcals/Kg AdjBW 177.7lb/80.8kg Kcals Calculated 2020-2424kcal (25-30kcal/kg) Protein: Adj wt of IBW Protein Calculated 81g (1g/kg) Fluid: ml 2019-2424ml (1ml/kcal) Nutritional Problem 2. Problem Problem Overweight related to Etiology energy imbalance, excessive PO intake aeb Signs/Symptoms: PO intake >100% of estimated nutritional needs since adm, BMI 37 1. Problem Problem Altered nutrition related laboratory values related to Etiology DM aeb Signs/Symptoms: H&P, elevated POC glucose Intervention/Recommendation Comments 1. Recommend [id number]. 2. Monitor weight. BMI 37. CBW 260.6lb with pt off and bedscale properly calibrated. Expected Outcomes/Goals Expected Outcomes/Goals 1. PO intake to meet at least 75% of estimated nutritional needs.
--- NOTE | 2017-06-30 00:06 | Progress Notes ---
DATE: 06/29/2017 SUBJECTIVE: The patient seen, chart reviewed, discussed with staff. The patient admitted due to psychosis, agitation, delusional. On [id number], the patient seems to be doing better, still feeling that people are "touching me" but noting this has been ongoing for years, likely at her baseline. States her sister does cook for her and we are currently pending a call back to see if family is willing to take her home and provide for her basic food, clothing, and custodial. APS has been involved. No SI. No HI. Sleeping well, eating well. She has been med compliant. I would like to start her on Risperdal Consta or Invega, but unfortunately the pharmacy does not carry this. ASSESSMENT: The patient seems to be improving, likely approaching her baseline, still with some evidence of psychosis, but no longer agitated or in distress, currently pending a call back from family regarding placement. JOB# [id number]
[2017-06-30] MEDS: INSULIN ASPART SLIDING SCALE 100 UNITS/ML UNIT SUBQ SCH ×4 (06:35→20:53)
--- NOTE | 2017-06-30 22:45 | Progress Notes ---
DATE: 06/30/2017 SUBJECTIVE: The patient seen, chart reviewed, discussed with staff. The patient remains symptomatic, still with hallucinations and some paranoia on thoughts; however, improvement noted, more engaged, linear on exam, no agitation. No escalation of behaviors. Currently pending confirmation that she can go home. She will likely go home with her sister. We also need to help with transportation as family cannot come to get her. No medication side effects noted. The patient has not been disruptive. She has been calm and cooperative. ASSESSMENT: Improvement noted. Currently pending placement, transportation and social work. We will monitor and followup. The patient likely approaching her baseline. JOB# [id number]
[2017-07-01] MEDS: INSULIN ASPART SLIDING SCALE 100 UNITS/ML UNIT SUBQ SCH ×4 (06:35→21:00)
--- NOTE | 2017-07-01 20:33 | General Progress Note ---
Subjective - Review of Systems Subjective: Patient seen and examined. No new event reported. Available lab and MAR noted. Patient denies any chest pain, shortness of breath, palpitation, dizziness, headache, nausea, vomiting. Objective - Results Recent Labs: Laboratory Last Values POC Glucose 130 MG/DL (70 - 105) H 07/01/17 19:56 - Physical Exam Vitals and I&O: Vital Signs Temp 98.1 F 07/01/17 18:20 Pulse 56 07/01/17 18:20 Resp 18 07/01/17 18:20 BP 107/76 07/01/17 18:20 Pulse Ox 96 07/01/17 18:20 Intake & Output 07/01/17 07/01/17 07/02/17 06:59 18:59 06:59 Intake Total 120 1000 Balance 120 1000 Intake: Oral 120 1000 Other: # Voids 3 3 # Bowel Movements 1 Active Medications: Current Medications Acetaminophen (Tylenol) 650 mg PO Q6H PRN PRN Reason: Mild Pain/Headache/T above 101 Stop: 08/15/17 21:12 Last Admin: 06/30/17 14:10 Dose: 650 mg Al Hydrox/Mg Hydrox/Simethicone (Maalox) 30 ml PO Q6H PRN PRN Reason: Dyspepsia Stop: 08/15/17 21:12 Insulin Aspart (Novolog Insulin Sliding Scale) 0 units SUBQ ACHS CATHY PRN Reason: Protocol Stop: 08/16/17 07:29 Last Admin: 07/01/17 16:57 Dose: Not Given Lorazepam (Ativan) 1 mg PO Q6H PRN; Protocol PRN Reason: Anxiety/Agitation Stop: 08/15/17 21:12 Last Admin: 06/21/17 08:36 Dose: 1 mg Magnesium Hydroxide (Milk Of Magnesia) 30 ml PO HS PRN PRN Reason: Constipation Stop: 08/15/17 21:12 Risperidone (Risperdal) 1.5 mg PO BID CATHY Stop: 08/26/17 07:21 Last Admin: 07/01/17 16:14 Dose: 1.5 mg Zolpidem Tartrate (Ambien) 5 mg PO HS PRN PRN Reason: Insomnia Stop: 08/15/17 21:12 Last Admin: 06/29/17 21:14 Dose: 5 mg General: Alert, Cooperative, No acute distress HEENT: Atraumatic, PERRLA, EOMI, Mucous membr. moist/pink Neck: Supple Cardiovascular: Regular rate, Normal S1, Normal S2 Lungs: Clear to auscultation Abdomen: Bowel sounds, Soft, Other Extremities: Other (no edema cyanosis) Neurological: Normal speech Psych/Mental Status: Mood NL Assessment/Plan - Assessment Assessment: Diabetes mellitus. Hypertension. Obesity. DJD. Smoking cigarettes. Urinary incontinence. Psychiatric disorder. - Plan Plan: Monitor vitals. Monitor behavior. Monitor glucoses. Diabetes management. Psych medications. Psych follow-up. Fall precautions. General nursing care. Smoking scissors and counseling done. Medications for urinary incontinence. Care plan reviewed and discussed with staff. Nutritional Asmnt/Malnutr-PDOC - Dietary Evaluation Malnutrition Findings (Please click <Entered> for more info): Nutritional Asmnt/Malnutrition Start: 06/21/17 16: 29 Text: Status: Complete Freq: Document 06/21/17 16:29 GSUN (Rec: 06/21/17 16:53 GSUN [id number]) Nutritional Asmnt/Malnutrition Patient General Information Nutritional Screening Diagnosis Diagnosis 5150, psychosis unspecified, schizophrenia vs delusional Pertinent Medical Hx/Surgical Hx DM, HTN, obesity, DJD, urinary incontinence, nicotine dependency, psychotic behavior Subjective Information 51 year old female. Pt is able to ambulate, but travels in wheelchair. Pt was pleasant, questionable historian, focused on going to take a shower during visit, not suitable for nutrition education. Attempted to briefly explain [facility] diet, pt walked away. Pt apepared obese . Pt stated UBW 296lb. Obtained CBW 260.6lb with bedscale properly claibrated. Pt stated excellent appetite, no difficulties, no allergies. Current Diet Order/ Nutrition Support Regular Pertinent Medications Novolog, MOM Pertinent Labs POC glucose 99-139 past 3 days . Nutritional Hx/Data Height 1.78 m Height (Calculated Centimeters) 177.8 Current Weight (lbs) 118.206 kg Weight (Calculated Kilograms) 118.2 Weight (Calculated Grams) 435454.2 [place] Body Weight 150 Weight Status Obese GI Symptoms Skin Integrity/Comment: Neto 22. Skin intact. Current %PO Good (75-100%) Estimated Nutritional Goals BEE in Kcals: Adj wt of IBW Calories/Kcals/Kg AdjBW 177.7lb/80.8kg Kcals Calculated 2019-2424kcal (25-30kcal/kg) Protein: Adj wt of IBW Protein Calculated 81g (1g/kg) Fluid: ml 2019-2424ml (1ml/kcal) Nutritional Problem 2. Problem Problem Overweight related to Etiology energy imbalance, excessive PO intake aeb Signs/Symptoms: PO intake >100% of estimated nutritional needs since adm, BMI 37 1. Problem Problem Altered nutrition related laboratory values related to Etiology DM aeb Signs/Symptoms: H&P, elevated POC glucose Intervention/Recommendation Comments 1. Recommend [id number]. 2. Monitor weight. BMI 37. CBW 260.6lb with pt off and bedscale properly calibrated. Expected Outcomes/Goals Expected Outcomes/Goals 1. PO intake to meet at least 75% of estimated nutritional needs.
--- NOTE | 2017-07-02 03:51 | Progress Notes ---
DATE: 07/01/2017 SUBJECTIVE: The patient seen, chart reviewed, discussed with staff. The patient with noted improvement, calm, more cooperative, more involved in her dispo planning, asking about her disposition. The patient with continued residual psychotic symptoms, some bizarre ideations, but noted improvement. No longer responding to internal stimuli. No longer delusional and paranoid, more linear and engaged on exam. Staff noting robust improvement. The patient is currently gravely disabled and we did make efforts to get the patient home today, but the family is still working on her mobile, it is as of yet not ready, so it had to go another 24 hours. The patient is sleeping well, eating well. No agitation. No escalation of behaviors. ASSESSMENT: Improvement noted, still with some residual psychotic symptoms; however, the patient is more amenable to care taking her medications and side effects. PLAN: Continue to monitor, coordinate care with social studies department chair regarding safe discharge planning and psychiatric followup. [facility]# [id number]
[2017-07-02] MEDS: INSULIN ASPART SLIDING SCALE 100 UNITS/ML UNIT SUBQ SCH (07:00)
--- NOTE | 2017-07-03 03:28 | Discharge Summary ---
DATE OF DISCHARGE: 07/02/2017 JUSTIFICATION FOR HOSPITALIZATION: The patient came to the hospital gravely disabled, paranoid, psychotic, and delusional. Family concerned. CHIEF COMPLAINT: ____ HISTORY OF PRESENT ILLNESS: A 52-year-old female with history of likely schizophrenia. Noted to be delusional, paranoid, talking about world wars, spiritual wars, noted to be aggressive ____ accelerated, nonsensical, fragmented sleep, fragmented appetite. PAST PSYCHIATRIC HISTORY: Schizophrenia, long history of mental illness. FAMILY HISTORY: Noncontributory. SOCIAL HISTORY: Living in a caravan, fair family support, disabled due to mental illness. MENTAL STATUS EXAMINATION: Please see ____ for details. PROVISIONAL DIAGNOSIS: Schizophrenia. MEDICAL: Please see full H and P. The patient is overweight, wheelchair bound. HOSPITAL COURSE: ____ Risperdal was initiated and titrated. The patient was amenable to treatment and over the course of hospitalization, she did improve, mood improved, affect improved. Calmer on exam. No longer is aggressive, no longer is agitated. ____ noted to be sleeping well, eating well. CONDITION UPON DISCHARGE: Improved, ____ ADLs. Fair eye contact. Speech, decreased content. Mood "okay." Affect broad. Thought process linear. No HI, no SI, no intent, no plan. No evidence of psychosis. Improved insight and judgment. Family involved. ____ discharge because of housing and we also had to confirm Adult Protective Services report. DISCHARGE DIAGNOSIS: Schizophrenia. MEDICAL: Please see full H and P. PROGNOSIS: If the patient continues Risperdal and follows her treatment plan, prognosis will improve, otherwise guarded. JOB# [id number]
== END 2017-07-02 11:15 | disposition home or self-care (01) | DRG 885 ==
LOC: GERO 20:09
PROVIDERS: ADMIT Psychiatry & Neurology Psychiatry; ATTEND Psychiatry & Neurology Psychiatry
DX: F20.9 Schizophrenia, unspecified (principal); E11.9 Type 2 diabetes mellitus without complications; I10 Essential (primary) hypertension; M19.90 Unspecified osteoarthritis, unspecified site; F29 Unspecified psychosis not due to a substance or known physiological condition; E66.9 Obesity, unspecified; F39 Unspecified mood [affective] disorder; F41.9 Anxiety disorder, unspecified; F17.210 Nicotine dependence, cigarettes, uncomplicated; R32 Unspecified urinary incontinence; F22 Delusional disorders; Z79.84 Long term (current) use of oral hypoglycemic drugs; Z82.49 Family history of ischemic heart disease and other diseases of the circulatory system; Z83.3 Family history of diabetes mellitus; Z68.37 Body mass index [BMI] 37.0-37.9, adult; Z71.6 Tobacco abuse counseling
CPT/HCPCS: 82948-90; 90899; G0410; J1815; Z7610